=== PATIENT | female | born 1975 | race Caucasian/White ===

== ENCOUNTER 2018-03-21 19:19 | Emergency (ER) | payer OTHER ==
[~2018-03-21] VITALS: Ht 167.6 cm; Wt 104.5 kg
[~2018-03-21 19:19] MED LIST: TRAZ-219 PO
[2018-03-21] MEDS ORDERED: CITA-106 PO (19:30)
[2018-03-21] MEDS ORDERED: BACITRACIN 0.9 GM PACKET OINTMENT TP ONE (21:15)
[2018-03-21] MEDS ORDERED: BUPIVACAINE HCL/PF 0.25% 10 ML VIAL INJ ONE (21:15)
[2018-03-21] MEDS ORDERED: POVIDONE-IODINE 10% 15 ML SOLUTION UD TP ONE (21:15)
[2018-03-21 22:24] VITALS: BP 124/65
== END 2018-03-21 22:48 | disposition home or self-care (01) ==
LOC: EMS 19:21
DX: S00.441A External constriction of right ear, initial encounter (principal); W49.04XA Ring or other jewelry causing external constriction, initial encounter; Y93.89 Activity, other specified; Y92.89 Other specified places as the place of occurrence of the external cause; Y99.8 Other external cause status
CPT/HCPCS: 10120; 99284; J3490; 12051

== ENCOUNTER 2018-05-16 09:35 | Emergency (ER) | payer OTHER ==
[~2018-05-16] VITALS: Ht 165.1 cm; Wt 61.8 kg
[~2018-05-16 09:35] MED LIST changes: +CITA-106 PO
[2018-05-16 09:40] VITALS: BP 136/74
[2018-05-16] MEDS ORDERED: ACETAMINOPHEN 500 MG TABLET PO ONE (10:00)
== END 2018-05-16 11:11 | disposition home or self-care (01) ==
LOC: EMS 09:37
DX: S83.92XA Sprain of unspecified site of left knee, initial encounter (principal); F41.9 Anxiety disorder, unspecified; J45.909 Unspecified asthma, uncomplicated; F20.9 Schizophrenia, unspecified; Z87.891 Personal history of nicotine dependence; Z98.51 Tubal ligation status; W19.XXXA Unspecified fall, initial encounter; Y93.89 Activity, other specified; Y92.89 Other specified places as the place of occurrence of the external cause; Y99.8 Other external cause status
CPT/HCPCS: 99284

== ENCOUNTER 2018-08-08 17:07 | Emergency (ER) | payer OTHER ==
[~2018-08-08] VITALS: Ht 167.6 cm; Wt 97.7 kg
[2018-08-08 17:12] VITALS: BP 121/72
== END 2018-08-08 19:06 | disposition left against medical advice (07) ==
LOC: EMS 17:08
DX: F41.9 Anxiety disorder, unspecified (principal); F32.9 Major depressive disorder, single episode, unspecified; F20.9 Schizophrenia, unspecified; J45.909 Unspecified asthma, uncomplicated; Z87.891 Personal history of nicotine dependence; Z53.21 Procedure and treatment not carried out due to patient leaving prior to being seen by health care provider

== ENCOUNTER 2019-02-01 00:13 | Emergency (ER) | payer OTHER ==
[~2019-02-01] VITALS: Ht 167.6 cm; Wt 106.8 kg
[~2019-02-01 00:13] MED LIST changes: -TRAZ-219 PO; +TRAZ-252 PO
[2019-02-01 00:30] VITALS: BP 119/68
[2019-02-01] MEDS ORDERED: IBUPROFEN 800 MG TABLET PO ONE (00:45)
== END 2019-02-01 01:04 | disposition home or self-care (01) ==
LOC: EMS 00:17
DX: M79.632 Pain in left forearm (principal); M25.532 Pain in left wrist; F41.9 Anxiety disorder, unspecified; J45.909 Unspecified asthma, uncomplicated; F32.9 Major depressive disorder, single episode, unspecified; F20.9 Schizophrenia, unspecified; Z87.891 Personal history of nicotine dependence; Z98.51 Tubal ligation status

== ENCOUNTER 2019-05-29 10:58 | Emergency (ER) | payer SELFPAY ==
[~2019-05-29] VITALS: Ht 167.6 cm; Wt 102.3 kg
[2019-05-29 11:03] VITALS: BP 119/71
[2019-05-29] MEDS ORDERED: NEOMYCIN/POLYMYXIN B/HYDROCORT 10 ML OTIC SUSPENSION AD ONE (11:30)
== END 2019-05-29 12:06 | disposition home or self-care (01) ==
LOC: EMS 11:00
DX: H60.93 Unspecified otitis externa, bilateral (principal); F32.9 Major depressive disorder, single episode, unspecified; F20.9 Schizophrenia, unspecified; J45.909 Unspecified asthma, uncomplicated; F41.9 Anxiety disorder, unspecified; F12.90 Cannabis use, unspecified, uncomplicated; F17.210 Nicotine dependence, cigarettes, uncomplicated
CPT/HCPCS: 99406

== ENCOUNTER 2022-12-06 22:21 | Inpatient (IN) | payer MEDICAID ==
[~2022-12-06] VITALS: Ht 157.5 cm; Wt 92.1 kg
[2022-12-06] MEDS ORDERED: LORazepam 1 MG TABLET PO ONE (22:45)
[2022-12-07] MEDS ORDERED: HALOPERIDOL 5 MG TABLET PO ONE (03:15)
[2022-12-07] MEDS ORDERED: DiphenhydrAMINE HCL 25 MG CAPSULE PO ONE (03:15)
[2022-12-07 03:27] LABS: BASOPHILS % (AUTO) 0.5 % (0.0-2.0); EOSINOPHILS % (AUTO) 0.9 % (1.0-6.0); HEMOGLOBIN 12.6 g/dL (12.0-16.0); LYMPHOCYTES # (AUTO) 2.5 K/uL (1.0-4.8); LYMPHOCYTES % (AUTO) 23.8 % (22.0-44.0); MEAN CORPUSCULAR HEMOGLOBIN 32.7 pg (26.0-34.0); MEAN CORPUSCULAR VOLUME 96 fL (80-100); MONOCYTES # (AUTO) 0.9 K/uL (0.1-1.0); MONOCYTES % (AUTO) 8.5 % (2.0-9.0); NEUTROPHILS # (AUTO) 6.9 K/uL (1.8-7.7); NEUTROPHILS % (AUTO) 66.3 % (40.0-70.0); PLATELET COUNT (AUTO) 241 K/uL (150-450); RED BLOOD CELL COUNT(AUTO) 3.85 MIL/uL (4.00-5.20); RED CELL DISTRIBUTION WIDTH 13.5 % (11.5-14.5)
[2022-12-07 03:37] LABS: ANION GAP 10 mmol/L (8-16); CALCIUM, TOTAL 8.5 mg/dL (8.8-10.5); CARBON DIOXIDE 24 mmol/L (22-29); CHLORIDE 104 mmol/L (98-107); CREATININE 0.73 mg/dL (0.60-1.30); GLOMERULAR FILTR. RATE CALC > 60 mL/min (>60); GLUCOSE,RANDOM 92 mg/dL (70-110); POTASSIUM 3.2 mmol/L (3.5-5.1); SODIUM SERUM 138 mmol/L (136-145); UREA NITROGEN, BLOOD 17 mg/dL (7-18)
[2022-12-07 03:43] LABS: ALANINE AMINOTRANSFERASE 21 U/L (12-78); ALBUMIN 3.8 g/dL (3.4-5.0); ALKALINE PHOSPHATASE 93 U/L (46-116); ASPARTATE AMINOTRANSFERASE 33 U/L (15-37); BILIRUBIN,TOTAL 1.1 mg/dL (0.1-1.0); TOTAL PROTEIN, SERUM 7.4 g/dL (6.4-8.2)
[2022-12-07] MEDS ORDERED: HALOPERIDOL LACTATE 5 MG/ML VIAL IM ONE (05:30)
[2022-12-07] MEDS ORDERED: DiphenhydrAMINE HCL 50 MG/ML VIAL IM ONE (05:30)
[2022-12-07] MEDS ORDERED: LORazepam 2 MG/ML VIAL IM ONE (05:30)
[2022-12-07] MEDS ORDERED: ZOLPIDEM TARTRATE 10 MG TABLET PO PRN (09:45)
[2022-12-07 11:02] LABS: COVID AG,FIA SOURCE NASAL SWAB
[2022-12-07 12:00] VITALS: BP 109/67
[2022-12-07] MEDS ORDERED: MAGNESIUM HYDROXIDE SUSPENSION 30 ML UDCUP PO PRN (13:30)
[2022-12-07] MEDS ORDERED: ACETAMINOPHEN 325 MG TABLET PO PRN (13:30)
[2022-12-07] MEDS ORDERED: LOPERAMIDE HCL 2 MG CAPSULE PO PRN (13:30)
[2022-12-07] MEDS ORDERED: NICOTINE 14 MG/24 HOUR PATCH TD PRN (13:30)
[2022-12-07] MEDS ORDERED: ONDANSETRON HCL 4 MG TABLET PO PRN (13:30)
[2022-12-07] MEDS ORDERED: GuaiFENesin/D-METHORPHAN [SUGAR-FREE] 200-20MG/10 ML SYRUP UDCUP PO PRN (13:30)
[2022-12-07] MEDS ORDERED: ALBUTEROL SULFATE HFA 90 MCG/PUFF 8 GM INHALER IH PRN (13:30)
[2022-12-07] MEDS ORDERED: DOCUSATE SODIUM 100 MG CAPSULE PO PRN (13:30)
[2022-12-07] MEDS ORDERED: MAG HYDROX/AL HYDROX/SIMETH ES 30 ML SUSPENSION UDCUP PO PRN (13:30)
[2022-12-07] MEDS ORDERED: CloNIDine HCL 0.1 MG TABLET PO PRN (13:30)
[2022-12-07] MEDS ORDERED: PETROLATUM,WHITE 28 GM JELLY TP PRN (13:30)
[2022-12-08] MEDS ORDERED: POTASSIUM CHLORIDE 20 MEQ ER TABLET PO ONE (08:00)
[2022-12-08 08:46] LABS: BASOPHILS % (AUTO) 0.4 % (0.0-2.0); EOSINOPHILS % (AUTO) 0.9 % (1.0-6.0); HEMATOCRIT 37.8 % (36-46); HEMOGLOBIN 12.7 g/dL (12.0-16.0); LYMPHOCYTES # (AUTO) 1.2 K/uL (1.0-4.8); LYMPHOCYTES % (AUTO) 16.4 % (22.0-44.0); MEAN CORPUSCULAR HEMOGLOBIN 32.2 pg (26.0-34.0); MEAN CORPUSCULAR HGB CONC 33.6 G/dL (31.0-37.0); MEAN CORPUSCULAR VOLUME 96 fL (80-100); MONOCYTES # (AUTO) 0.4 K/uL (0.1-1.0); NEUTROPHILS # (AUTO) 5.6 K/uL (1.8-7.7); NEUTROPHILS % (AUTO) 76.3 % (40.0-70.0); PLATELET COUNT (AUTO) 250 K/uL (150-450); RED BLOOD CELL COUNT(AUTO) 3.94 MIL/uL (4.00-5.20); RED CELL DISTRIBUTION WIDTH 13.1 % (11.5-14.5)
[2022-12-08 09:01] LABS: HEMOGLOBIN A1C 5.6 % (3.8-5.6)
[2022-12-08 09:06] LABS: ALANINE AMINOTRANSFERASE 26 U/L (12-78); ALBUMIN 3.6 g/dL (3.4-5.0); ALKALINE PHOSPHATASE 91 U/L (46-116); ANION GAP 9 mmol/L (8-16); ASPARTATE AMINOTRANSFERASE 44 U/L (15-37); BILIRUBIN,TOTAL 0.6 mg/dL (0.1-1.0); CALCIUM, TOTAL 8.4 mg/dL (8.8-10.5); CARBON DIOXIDE 25 mmol/L (22-29); CHLORIDE 106 mmol/L (98-107); CHOL/HDL RATIO 4.2 (3.9-5.7); CHOLESTEROL 137 mg/dL (131-200); CREATININE 0.74 mg/dL (0.60-1.30); GLOMERULAR FILTR. RATE CALC > 60 mL/min (>60); GLUCOSE,RANDOM 138 mg/dL (70-110); HDL CHOLESTEROL 33 mg/dL (40-60); LDL CHOL (CALC.) 82 mg/dL (0-130); POTASSIUM 3.4 mmol/L (3.5-5.1); SODIUM SERUM 140 mmol/L (136-145); THYROID STIMULATING HORMONE 0.55 uIU/mL (0.36-3.74); TOTAL PROTEIN, SERUM 7.4 g/dL (6.4-8.2); TRIGLYCERIDES 109 mg/dL (15-150); UREA NITROGEN, BLOOD 14 mg/dL (7-18)
[2022-12-08 09:56] VITALS: BP 121/78
[2022-12-08] MEDS: RisperiDONE 2 MG TABLET PO SCH ×2 (10:15→16:30)
[2022-12-08 16:30] VITALS: BP 107/72
[2022-12-08 17:02] VITALS: BP 107/72
[2022-12-08 17:30] VITALS: BP 110/74
[2022-12-08 21:19] VITALS: BP 118/80
[2022-12-09 08:20] VITALS: BP 108/61
[2022-12-09] MEDS: LORazepam 2 MG TABLET PO PRN ×2 (08:59→17:15)
[2022-12-09] MEDS: RisperiDONE 2 MG TABLET PO SCH ×2 (08:59→16:32)
[2022-12-09 16:28] VITALS: BP 101/56
[2022-12-09 17:12] VITALS: BP 126/67
[2022-12-09] MEDS: IBUPROFEN 400 MG TABLET PO PRN (17:55)
[2022-12-10 08:28] LABS: APPEARANCE,URINE CLEAR (CLEAR); BILIRUBIN,URINE NEGATIVE (NEGATIVE); GLUCOSE, URINE (UA) NEGATIVE (NEGATIVE); KETONES,URINE NEGATIVE (NEGATIVE); LEUKOCYTE ESTERASE ,URINE NEGATIVE (NEGATIVE); NITRATE,URINE NEGATIVE (NEGATIVE); OCCULT BLOOD,URINE TRACE (NEGATIVE); PH,URINE 7.5 (5.0-8.0); PROTEIN,URINE NEGATIVE (NEGATIVE); SPECIFIC GRAVITIY, URINE 1.017 (1.003-1.030); UROBILINOGEN,URINE <=1.0 mg/dL (<=1.0)
[2022-12-10 08:35] LABS: AMPHET/METH SCREEN,URINE NEGATIVE (NEGATIVE); BARBITURATE SCREEN, URINE NEGATIVE (NEGATIVE); BENZODIAZEPINES SCREEN,URINE NEGATIVE (NEGATIVE); CANNABINOID SCREEN,URINE POSITIVE (NEGATIVE); COCAINE SCREEN,URINE NEGATIVE (NEGATIVE); METHADONE SCREEN, URINE NEGATIVE (NEGATIVE); OPIATE SCREEN,URINE NEGATIVE (NEGATIVE); PHENCYCLIDINE SCREEN,URINE NEGATIVE (NEGATIVE)
[2022-12-10 08:37] VITALS: BP 111/78
[2022-12-10 08:52] LABS: BACTERIA,URINE None Seen /HPF (None Seen); RBC,URINE 0-2 /HPF (0-2); SQUAMOUS EPITHELIAL CELL,UR Few /LPF (None Seen); WBC,URINE None Seen /HPF (0-5)
[2022-12-10] MEDS: RisperiDONE 2 MG TABLET PO SCH ×2 (09:03→17:12)
[2022-12-10] MEDS: IBUPROFEN 400 MG TABLET PO PRN (12:36)
[2022-12-10 16:15] VITALS: BP 108/75
[2022-12-10] MEDS: LORazepam 2 MG TABLET PO PRN (18:03)
[2022-12-10 20:43] VITALS: BP 119/67
[2022-12-11 08:32] VITALS: BP 114/81
[2022-12-11] MEDS: RisperiDONE 2 MG TABLET PO SCH ×2 (09:39→17:04)
[2022-12-11] MEDS: HALOPERIDOL 5 MG TABLET PO PRN (11:32)
[2022-12-11] MEDS: LORazepam 2 MG TABLET PO PRN (11:32)
[2022-12-11 16:30] VITALS: BP 99/61
[2022-12-12] MEDS: RisperiDONE 2 MG TABLET PO SCH ×2 (08:08→16:23)
[2022-12-12 08:18] VITALS: BP 108/73
[2022-12-12] MEDS: HALOPERIDOL 5 MG TABLET PO PRN (09:37)
[2022-12-12] MEDS: LORazepam 2 MG TABLET PO PRN (09:37)
[2022-12-12] MEDS: HydrOXYzine PAMOATE 50 MG CAPSULE PO PRN (15:32)
[2022-12-12 17:03] VITALS: BP 114/64
[2022-12-12 20:15] VITALS: BP 105/64
[2022-12-13 07:24] LABS: COVID AG,FIA SOURCE NASAL SWAB
[2022-12-13] MEDS: RisperiDONE 2 MG TABLET PO SCH ×2 (08:05→16:11)
[2022-12-13 09:25] VITALS: BP 110/78
[2022-12-13] MEDS: HydrOXYzine PAMOATE 50 MG CAPSULE PO PRN (11:29)
[2022-12-13 16:15] VITALS: BP 127/86
[2022-12-13 20:14] VITALS: BP 120/78
[2022-12-14] MEDS: HydrOXYzine PAMOATE 50 MG CAPSULE PO PRN ×3 (05:54→23:02)
[2022-12-14] MEDS: RisperiDONE 2 MG TABLET PO SCH ×2 (08:09→16:09)
[2022-12-14 08:45] VITALS: BP 106/68
[2022-12-14 16:01] VITALS: BP 127/79
[2022-12-14 20:29] VITALS: BP 115/71
[2022-12-15] MEDS: RisperiDONE 2 MG TABLET PO SCH (08:08)
[2022-12-15] MEDS ORDERED: RISP2TAB86 PO (10:52)
== END 2022-12-15 14:12 | disposition home or self-care (01) | DRG 750 ==
LOC: EMS 22:34 → 3EC 12-07 10:11
PROVIDERS: ADMIT Psychiatry & Neurology Child & Adolescent Psychiatry; ATTEND Psychiatry & Neurology Child & Adolescent Psychiatry
DX: F25.1 Schizoaffective disorder, depressive type (principal); E03.9 Hypothyroidism, unspecified; G47.00 Insomnia, unspecified; J45.909 Unspecified asthma, uncomplicated; E87.6 Hypokalemia; E66.9 Obesity, unspecified; F41.9 Anxiety disorder, unspecified; F32.A Depression, unspecified; F15.10 Other stimulant abuse, uncomplicated; Z20.822 Contact with and (suspected) exposure to COVID-19; Z78.1 Physical restraint status; Z87.891 Personal history of nicotine dependence; Z68.37 Body mass index [BMI] 37.0-37.9, adult
CPT/HCPCS: 80053; 80061; 80307; 81001; 83036; 84132; 84443; 85025; 99291; G0480; J1200; J1630; J2060; Q0162

== ENCOUNTER 2023-02-28 08:31 | Emergency (ER) | payer MEDICAID ==
[~2023-02-28] VITALS: Ht 162.6 cm; Wt 90.9 kg
[~2023-02-28 08:31] MED LIST changes: -CITA-106 PO; +RISP2TAB86 PO; -TRAZ-252 PO
[2023-02-28 08:39] VITALS: BP 109/85
[2023-02-28] MEDS ORDERED: RISP4TAB73 PO (08:44)
[2023-02-28] MEDS ORDERED: VENL-66 PO (08:44)
[2023-02-28] MEDS ORDERED: HYDR50CA7 PO (08:44)
[2023-02-28] MEDS ORDERED: RISP2TAB45 PO (08:44)
[2023-02-28] MEDS ORDERED: HALOPERIDOL LACTATE 5 MG/ML VIAL IM ONE (09:45)
[2023-02-28] MEDS ORDERED: DiphenhydrAMINE HCL 25 MG CAPSULE PO ONE (09:45)
[2023-02-28 09:49] LABS: BASOPHILS % (AUTO) 0.4 % (0.0-2.0); HEMATOCRIT 42.2 % (36-46); HEMOGLOBIN 14.4 g/dL (12.0-16.0); LYMPHOCYTES # (AUTO) 0.9 K/uL (1.0-4.8); LYMPHOCYTES % (AUTO) 15.1 % (22.0-44.0); MEAN CORPUSCULAR HEMOGLOBIN 31.8 pg (26.0-34.0); MEAN CORPUSCULAR VOLUME 94 fL (80-100); MONOCYTES # (AUTO) 0.3 K/uL (0.1-1.0); MONOCYTES % (AUTO) 5.7 % (2.0-9.0); NEUTROPHILS # (AUTO) 4.5 K/uL (1.8-7.7); NEUTROPHILS % (AUTO) 77.8 % (40.0-70.0); PLATELET COUNT (AUTO) 208 K/uL (150-450); RED BLOOD CELL COUNT(AUTO) 4.51 MIL/uL (4.00-5.20); RED CELL DISTRIBUTION WIDTH 12.4 % (11.5-14.5)
[2023-02-28 10:17] LABS: ANION GAP 5 mmol/L (8-16); CALCIUM, TOTAL 8.9 mg/dL (8.8-10.5); CARBON DIOXIDE 25 mmol/L (22-29); CHLORIDE 105 mmol/L (98-107); CREATININE 0.75 mg/dL (0.60-1.30); GLOMERULAR FILTR. RATE CALC > 60 mL/min (>60); GLUCOSE,RANDOM 137 mg/dL (70-110); POTASSIUM 3.8 mmol/L (3.5-5.1); SODIUM SERUM 135 mmol/L (136-145)
[2023-02-28 10:23] LABS: ALANINE AMINOTRANSFERASE 34 U/L (12-78); ALBUMIN 4.3 g/dL (3.4-5.0); ALKALINE PHOSPHATASE 86 U/L (46-116); ASPARTATE AMINOTRANSFERASE 15 U/L (15-37); BILIRUBIN,TOTAL 0.6 mg/dL (0.1-1.0); TOTAL PROTEIN, SERUM 7.6 g/dL (6.4-8.2)
[2023-03-02] MEDS ORDERED: ACET-66 PO (21:06)
== END 2023-02-28 11:26 | disposition home or self-care (01) ==
LOC: EMS 08:37
DX: F25.9 Schizoaffective disorder, unspecified (principal); R45.851 Suicidal ideations; F41.9 Anxiety disorder, unspecified; J45.909 Unspecified asthma, uncomplicated; F32.A Depression, unspecified; F12.90 Cannabis use, unspecified, uncomplicated; Z98.51 Tubal ligation status; Z87.891 Personal history of nicotine dependence
CPT/HCPCS: 99284; 80053; 85025; 36415; 96372; G0480; J1630

== ENCOUNTER 2023-03-10 10:36 | Emergency (ER) | payer MEDICAID ==
[~2023-03-10] VITALS: Ht 165.1 cm; Wt 72.7 kg
[~2023-03-10 10:36] MED LIST changes: +ACET-66 PO; +HYDR50CA7 PO; +RISP2TAB45 PO; -RISP2TAB86 PO; +RISP4TAB73 PO; +VENL-66 PO
[2023-03-10] MEDS ORDERED: [UNRECOGNIZED DRUG - REMARK] PO (10:54)
[2023-03-10 12:09] VITALS: TEMP 98.8
[2023-03-10 13:21] LABS: BASOPHILS % (AUTO) 0.7 % (0.0-2.0); HEMATOCRIT 39.1 % (36-46); HEMOGLOBIN 13.2 g/dL (12.0-16.0); LYMPHOCYTES # (AUTO) 1.3 K/uL (1.0-4.8); LYMPHOCYTES % (AUTO) 23.3 % (22.0-44.0); MEAN CORPUSCULAR HEMOGLOBIN 31.9 pg (26.0-34.0); MEAN CORPUSCULAR HGB CONC 33.6 G/dL (31.0-37.0); MEAN CORPUSCULAR VOLUME 95 fL (80-100); MONOCYTES # (AUTO) 0.4 K/uL (0.1-1.0); MONOCYTES % (AUTO) 7.5 % (2.0-9.0); NEUTROPHILS # (AUTO) 3.9 K/uL (1.8-7.7); NEUTROPHILS % (AUTO) 67.5 % (40.0-70.0); PLATELET COUNT (AUTO) 207 K/uL (150-450); RED BLOOD CELL COUNT(AUTO) 4.13 MIL/uL (4.00-5.20); RED CELL DISTRIBUTION WIDTH 12.5 % (11.5-14.5)
[2023-03-10 13:30] LABS: ANION GAP 9 mmol/L (8-16); CALCIUM, TOTAL 8.5 mg/dL (8.8-10.5); CARBON DIOXIDE 28 mmol/L (22-29); CHLORIDE 104 mmol/L (98-107); CREATININE 0.74 mg/dL (0.60-1.30); GLOMERULAR FILTR. RATE CALC > 60 mL/min (>60); GLUCOSE,RANDOM 106 mg/dL (70-110); POTASSIUM 3.4 mmol/L (3.5-5.1); SODIUM SERUM 141 mmol/L (136-145)
[2023-03-10 13:41] LABS: ALANINE AMINOTRANSFERASE 21 U/L (12-78); ALBUMIN 3.7 g/dL (3.4-5.0); ALKALINE PHOSPHATASE 70 U/L (46-116); ASPARTATE AMINOTRANSFERASE 13 U/L (15-37); BILIRUBIN,TOTAL 0.5 mg/dL (0.1-1.0); HCG,QUANTITATIVE < 1 mIU/mL (0-6); LIPASE 39 U/L (73-393); TOTAL PROTEIN, SERUM 7.1 g/dL (6.4-8.2)
[2023-03-10] MEDS ORDERED: MINERAL OIL 133 ML ENEMA PR ONE (14:00)
[2023-03-10] MEDS ORDERED: MAGN-169 PO (15:29)
[2023-03-10 15:33] VITALS: BP 122/79; PULSE 80; RESP 16
== END 2023-03-10 15:50 | disposition home or self-care (01) ==
LOC: EMS 10:36
DX: K59.00 Constipation, unspecified (principal); R10.30 Lower abdominal pain, unspecified; J45.909 Unspecified asthma, uncomplicated; F41.9 Anxiety disorder, unspecified; F32.A Depression, unspecified; F20.9 Schizophrenia, unspecified; F17.210 Nicotine dependence, cigarettes, uncomplicated; Z98.51 Tubal ligation status
CPT/HCPCS: 80053; 83690; 84702; 85025; 99283